=== PATIENT | female | born 1935 | race Caucasian/White ===

== ENCOUNTER 2017-06-03 10:57 | Inpatient (IN) | payer OTHER ==
[~2017-06-03] VITALS: Ht 149.9 cm; Wt 43.0 kg
[2017-06-03] VITALS (9 sets, daily range): BP systolic 98–135; BP diastolic 50–63
[~2017-06-03 10:57] MED LIST: CRESTOR10 MG; KEFLEX500 MG PO; METOPROLOL SUC100 MG
[2017-06-03 11:30] LABS: PLATELET COUNT 152 K/uL (156-360)
[2017-06-03 11:36] LABS: HEMATOCRIT 42.2 % (36.0-46.0); HEMOGLOBIN 13.4 G/DL (11.9-15.5); MCH 29.5 PG (29.0-34.0); MCHC 31.8 G/DL (30.0-36.0); RBC DIS.WIDTH-CV 12.8 % (11.8-14.6); RBC DIS.WIDTH-SD 43.5 % (39-53); RED BLOOD COUNT 4.54 M/uL (3.80-5.20)
[2017-06-03 11:46] LABS: CHLORIDE 101 mEq/L (99-109)
[2017-06-03 11:47] LABS: POTASSIUM 3.7 mEq/L (3.7-5.4); SODIUM 140 mEq/L (136-147)
[2017-06-03 11:48] LABS: GLUCOSE 123 mg/dL (70-99)
[2017-06-03 11:52] LABS: CREATININE 3.1 mg/dL (0.6-1.3); GFR ESTIMATE (CALCULATED) 15 mL/min/
[2017-06-03 11:53] LABS: UREA NITROGEN (BUN) 26 mg/dL (9-23)
[2017-06-03 12:56] LABS: APPEARANCE CLOUDY ((CLEAR)); BILIRUBIN NEGATIVE; BLOOD MODERATE; COLOR AMBER ((YELLOW)); GLUCOSE (STRIP) NEGATIVE; KETONES NEGATIVE; LEUKOCYTES MODERATE; NITRITE NEGATIVE; PROTEIN (STRIP) 100; SPECIFIC GRAVITY 1.015 (1.000-1.030)
[2017-06-03 13:10] LABS: BACTERIA 3+ /HPF; EPITHELIAL CELLS RARE /HPF; MUCUS NONE SEEN /LPF; UCUL ADDED? YES; WHITE BLOOD CELLS 15-20 /HPF (0-5)
[2017-06-03] MEDS ORDERED: ERGOCALCIF50000 UNIT PO (15:11)
[2017-06-03] MEDS ORDERED: CYANOCOBAL1000 MCG/2 IM (15:12)
[2017-06-03 15:43] LABS: TROP-I INTERPRETATION NEGATIVE; TROPONIN-I 0.02 ng/mL (0.0-0.30)
[2017-06-04] VITALS (26 sets, daily range): BP systolic 0–128; BP diastolic 0–83
[2017-06-04 05:35] LABS: INTER. NORMALIZED RATIO 1.4
[2017-06-04 05:37] LABS: HEMATOCRIT 31.2 % (36.0-46.0); MCH 28.5 PG (29.0-34.0); MCHC 30.8 G/DL (30.0-36.0); MCV 92.6 FL (83-99); RBC DIS.WIDTH-CV 13.1 % (11.8-14.6); RBC DIS.WIDTH-SD 44.5 % (39-53); WHITE BLOOD COUNT 17.7 K/uL (4.1-10.2)
[2017-06-04 05:38] LABS: HEMOGLOBIN 9.6 G/DL (11.9-15.5); PTT 45.9 SEC (25-37); RED BLOOD COUNT 3.37 M/uL (3.80-5.20)
[2017-06-04 06:16] LABS: ALBUMIN 2.4 G/DL (3.2-4.8); ALKALINE PHOSPHATASE 40 IU/L (3-129); ALT (GPT) 6 IU/L (3-49); AST (GOT) 14 IU/L (2-34); CHLORIDE 117 MEQ/L (99-109); POTASSIUM 4.3 MEQ/L (3.7-5.4); SODIUM 145 MEQ/L (136-147); TOTAL BILIRUBIN 0.6 MG/DL (0.0-1.0); TOTAL PROTEIN 4.1 G/DL (6.4-8.3); UREA NITROGEN (BUN) 26 mg/dL (9-23)
[2017-06-04 06:18] LABS: GFR ESTIMATE (CALCULATED) 25 mL/min/; GLUCOSE 72 mg/dL (70-99)
[2017-06-04 06:25] LABS: PLAT.SUFFICIENCY DECREASED
[2017-06-04 06:27] LABS: PLATELET COUNT 101 K/uL (156-360)
[2017-06-05] VITALS (14 sets, daily range): BP systolic 92–154; BP diastolic 50–107
[2017-06-05 08:31] LABS: HEMATOCRIT 32.4 % (36.0-46.0); MCH 28.7 PG (29.0-34.0); MCHC 30.9 G/DL (30.0-36.0); MCV 92.8 FL (83-99); PLATELET COUNT 90 K/uL (156-360); RBC DIS.WIDTH-CV 13.2 % (11.8-14.6); RED BLOOD COUNT 3.49 M/uL (3.80-5.20); WHITE BLOOD COUNT 9.7 K/uL (4.1-10.2)
[2017-06-05 08:58] LABS: CHLORIDE 117 MEQ/L (99-109); GFR ESTIMATE (CALCULATED) 42 mL/min/; GLUCOSE 70 mg/dL (70-99); POTASSIUM 3.9 MEQ/L (3.7-5.4); SODIUM 142 MEQ/L (136-147); UREA NITROGEN (BUN) 25 mg/dL (9-23)
[2017-06-05 09:02] LABS: CREATININE 1.3 MG/DL (0.6-1.3)
[2017-06-05 09:15] LABS: ATYPICAL LYMPHOCYTE 0.9 %; BAND NEUTROPHILS 8.7 % (0-8.0); BASOPHILS 0.9 %; EOSINOPHIL ABS CT 0; LYMPHOCYTES 3.5 % (15.0-45.0); MONOCYTES 1.7 % (0-9.0); SEG.NEUTROPHILS 84.3 % (46.0-76.0); SMUDGE CELLS 0.9
[2017-06-06 00:58] VITALS: BP 146/67
[2017-06-06 03:12] VITALS: BP 186/85
[2017-06-06 07:38] VITALS: BP 146/77
[2017-06-06 12:06] LABS: CREATININE 1.1 MG/DL (0.6-1.3)
[2017-06-06 12:30] VITALS: BP 139/62
[2017-06-06 15:54] VITALS: BP 144/64
[2017-06-06 20:01] VITALS: BP 164/69
[2017-06-07 00:23] VITALS: BP 131/64
[2017-06-07 04:22] VITALS: BP 117/57
[2017-06-07 06:13] LABS: CREATININE 0.9 mg/dL (0.6-1.3); GFR ESTIMATE (CALCULATED) > 59 mL/min/
[2017-06-07 06:14] LABS: UREA NITROGEN (BUN) 13 mg/dL (9-23)
[2017-06-07 07:20] VITALS: BP 154/70
[2017-06-07 11:09] VITALS: BP 126/57
[2017-06-07 15:26] VITALS: BP 141/83
[2017-06-07 23:35] VITALS: BP 137/72
[2017-06-08 06:16] VITALS: BP 140/65
[2017-06-09] MEDS ORDERED: CEFTIN250 MG PO (16:23)
== END 2017-06-08 14:02 | disposition home health service (06) | DRG 871 ==
LOC: EME 10:57 → EDOF 15:52 → 4WEST 15:52 → ENRESERV 15:57 → 4WEST 17:17 → ENRESERV 06-05 15:02 → 2EAST 06-05 20:21
PROVIDERS: Emergency Medicine; Internal Medicine; Internal Medicine Critical Care Medicine; Radiology Diagnostic Radiology
PROC: 02HV33Z Insertion of Infusion Device into Superior Vena Cava, Percutaneous Approach (ICD-10-PCS; principal; 2017-06-03)
PROC: 0T9030Z Drainage of Right Kidney with Drainage Device, Percutaneous Approach (ICD-10-PCS; 2017-06-04)
DX: A41.51 Sepsis due to Escherichia coli [E. coli] (principal); R65.21 Severe sepsis with septic shock; J90 Pleural effusion, not elsewhere classified; N17.9 Acute kidney failure, unspecified; E87.2 Acidosis; K52.9 Noninfective gastroenteritis and colitis, unspecified; N18.9 Chronic kidney disease, unspecified; S60.511A Abrasion of right hand, initial encounter; B96.20 Unspecified Escherichia coli [E. coli] as the cause of diseases classified elsewhere; N13.2 Hydronephrosis with renal and ureteral calculous obstruction; I12.9 Hypertensive chronic kidney disease with stage 1 through stage 4 chronic kidney disease, or unspecified chronic kidney disease; W19.XXXA Unspecified fall, initial encounter; G30.9 Alzheimer's disease, unspecified; E78.5 Hyperlipidemia, unspecified; Z66 Do not resuscitate; D69.6 Thrombocytopenia, unspecified; F02.80 Dementia in other diseases classified elsewhere, unspecified severity, without behavioral disturbance, psychotic disturbance, mood disturbance, and anxiety; N39.0 Urinary tract infection, site not specified; Y92.9 Unspecified place or not applicable; Z87.440 Personal history of urinary (tract) infections; Z68.1 Body mass index [BMI] 19.9 or less, adult
CPT/HCPCS: 50433; 71010; 71020; 74000; 74176; 76775; 80048; 80053; 81003; 82565; 82945; 83605; 83615 91; 83986 90; 84157; 84484; 84520; 85025; 85027; 85610; 85730; 87040; 87070; 87077; 87086; 87186; 87205; 87493; 87641; 89051; 93005; 99281; 99285; C1751; C1769; J0610; J0692; J1644; J3010; J3370; J7030; J7050; J7070

== ENCOUNTER 2017-06-09 11:40 | Inpatient (IN) | payer OTHER ==
[~2017-06-09] VITALS: Ht 149.9 cm; Wt 41.8 kg
[~2017-06-09 11:40] MED LIST changes: +CYANOCOBAL1000 MCG/2 IM; +ERGOCALCIF50000 UNIT PO
[2017-06-09 12:58] LABS: ALBUMIN 2.5 g/dL (3.2-4.8); CHLORIDE 105 mEq/L (99-109); POTASSIUM 3.4 mEq/L (3.7-5.4); SODIUM 141 mEq/L (136-147)
[2017-06-09 13:01] LABS: BASOPHIL (%) 0.4 % (0-1); EOSINOPHIL (%) 2.8 % (0-5); EOSINOPHIL COUNT 0.1 K/uL (0-0.3); GLUCOSE 86 mg/dL (70-99); HEMATOCRIT 32.8 % (36.0-46.0); HEMOGLOBIN 10.6 G/DL (11.9-15.5); IMMATURE GRANULOCYTE (%) 3.9 % (0.0-0.7); LYMPHOCYTE (%) 12.2 % (15-42); LYMPHOCYTE COUNT 0.6 K/uL (1.0-2.8); MCHC 32.3 G/DL (30.0-36.0); MCV 89.9 FL (83-99); MONOCYTE (%) 10.4 % (3-12); MONOCYTE COUNT 0.5 K/uL (0-0.8); NEUTROPHIL (%) 70.3 % (45-76); NEUTROPHIL COUNT 3.6 K/uL (1.8-6.4); RBC DIS.WIDTH-SD 42.7 % (39-53); RED BLOOD COUNT 3.65 M/uL (3.80-5.20); TOTAL PROTEIN 5.3 g/dL (6.4-8.3); WHITE BLOOD COUNT 5.1 K/uL (4.1-10.2)
[2017-06-09 13:03] LABS: PLATELET COUNT 161 K/uL (156-360); TOTAL BILIRUBIN 0.6 mg/dL (0.0-1.0)
[2017-06-09 13:04] LABS: ALKALINE PHOSPHATASE 40 IU/L (3-129); CREATININE 0.7 mg/dL (0.6-1.3); GFR ESTIMATE (CALCULATED) > 59 mL/min/
[2017-06-09 13:05] LABS: UREA NITROGEN (BUN) 7 mg/dL (9-23)
[2017-06-09 13:06] LABS: AST (GOT) 15 IU/L (2-34)
[2017-06-09 13:07] LABS: ALT (GPT) 6 IU/L (3-49)
[2017-06-09 13:37] LABS: APPEARANCE CLOUDY ((CLEAR)); BILIRUBIN NEGATIVE; BLOOD SMALL; COLOR YELLOW ((YELLOW)); GLUCOSE (STRIP) NEGATIVE; KETONES NEGATIVE; LEUKOCYTES LARGE; NITRITE NEGATIVE; PROTEIN (STRIP) 30; UROBILINOGEN 0.2 MG/DL (0.2-1.0)
[2017-06-09 14:39] LABS: RED BLOOD CELLS RARE /HPF (0-5)
[2017-06-09 14:40] LABS: BACTERIA 2+ /HPF; EPITHELIAL CELLS 2+ /HPF; MUCUS NONE SEEN /LPF; UCUL ADDED? YES; WHITE BLOOD CELLS 20-30 /HPF (0-5)
[2017-06-09] MEDS ORDERED: CEFTIN250 MG PO (16:23)
[2017-06-09 21:39] VITALS: BP 151/68
[2017-06-09 23:25] VITALS: BP 155/67
[2017-06-10 06:07] LABS: BASOPHIL (%) 0.5 % (0-1); EOSINOPHIL (%) 2.6 % (0-5); EOSINOPHIL COUNT 0.2 K/uL (0-0.3); HEMATOCRIT 30.1 % (36.0-46.0); HEMOGLOBIN 9.6 G/DL (11.9-15.5); LYMPHOCYTE (%) 11.3 % (15-42); LYMPHOCYTE COUNT 0.7 K/uL (1.0-2.8); MCH 28.7 PG (29.0-34.0); MCHC 31.9 G/DL (30.0-36.0); MCV 89.9 FL (83-99); MONOCYTE (%) 9.4 % (3-12); MONOCYTE COUNT 0.6 K/uL (0-0.8); NEUTROPHIL (%) 73.2 % (45-76); NEUTROPHIL COUNT 4.4 K/uL (1.8-6.4); PLATELET COUNT 154 K/uL (156-360); RBC DIS.WIDTH-CV 12.9 % (11.8-14.6); RBC DIS.WIDTH-SD 42.4 % (39-53); RED BLOOD COUNT 3.35 M/uL (3.80-5.20)
[2017-06-10 06:56] LABS: CHLORIDE 107 MEQ/L (99-109); CREATININE 0.5 MG/DL (0.6-1.3); GFR ESTIMATE (CALCULATED) > 59 mL/min/; GLUCOSE 88 mg/dL (70-99); POTASSIUM 3.3 MEQ/L (3.7-5.4); SODIUM 143 MEQ/L (136-147); UREA NITROGEN (BUN) 6 mg/dL (9-23)
[2017-06-10 08:00] VITALS: BP 137/65
[2017-06-10 12:00] VITALS: BP 149/67
[2017-06-10 16:00] VITALS: BP 149/67
[2017-06-11 00:11] VITALS: BP 134/62
[2017-06-11 07:40] VITALS: BP 165/72
[2017-06-11 16:34] VITALS: BP 145/65
[2017-06-11 19:12] VITALS: BP 148/66
[2017-06-12] VITALS (8 sets, daily range): BP systolic 113–149; BP diastolic 56–75
[2017-06-12 05:59] LABS: BASOPHIL (%) 0.5 % (0-1); EOSINOPHIL (%) 3.4 % (0-5); EOSINOPHIL COUNT 0.2 K/uL (0-0.3); HEMATOCRIT 29.8 % (36.0-46.0); HEMOGLOBIN 9.1 G/DL (11.9-15.5); IMMATURE GRANULOCYTE (%) 1.2 % (0.0-0.7); LYMPHOCYTE (%) 11.1 % (15-42); LYMPHOCYTE COUNT 0.7 K/uL (1.0-2.8); MCHC 30.5 G/DL (30.0-36.0); MCV 91.7 FL (83-99); MONOCYTE (%) 7.6 % (3-12); MONOCYTE COUNT 0.5 K/uL (0-0.8); NEUTROPHIL (%) 76.2 % (45-76); NEUTROPHIL COUNT 4.5 K/uL (1.8-6.4); PLATELET COUNT 177 K/uL (156-360); RBC DIS.WIDTH-CV 13.2 % (11.8-14.6); RBC DIS.WIDTH-SD 43.6 % (39-53); RED BLOOD COUNT 3.25 M/uL (3.80-5.20); WHITE BLOOD COUNT 5.9 K/uL (4.1-10.2)
[2017-06-12 06:40] LABS: CHLORIDE 108 MEQ/L (99-109); CREATININE 0.6 MG/DL (0.6-1.3); GFR ESTIMATE (CALCULATED) > 59 mL/min/; GLUCOSE 112 mg/dL (70-99); POTASSIUM 3.6 MEQ/L (3.7-5.4); SODIUM 143 MEQ/L (136-147); UREA NITROGEN (BUN) 5 mg/dL (9-23)
[2017-06-13 04:00] VITALS: BP 134/71
[2017-06-13 07:31] VITALS: BP 138/66
[2017-06-13 11:39] VITALS: BP 139/66
[2017-06-13 15:31] VITALS: BP 138/68
[2017-06-14 00:18] VITALS: BP 145/66
[2017-06-14 06:21] LABS: BASOPHIL (%) 0.9 % (0-1); BASOPHIL COUNT 0.1 K/uL (0-0.1); EOSINOPHIL COUNT 0.2 K/uL (0-0.3); HEMATOCRIT 32.1 % (36.0-46.0); HEMOGLOBIN 10.1 G/DL (11.9-15.5); IMMATURE GRANULOCYTE (%) 0.5 % (0.0-0.7); LYMPHOCYTE (%) 9.8 % (15-42); LYMPHOCYTE COUNT 0.6 K/uL (1.0-2.8); MCH 28.9 PG (29.0-34.0); MCHC 31.5 G/DL (30.0-36.0); MCV 91.7 FL (83-99); MONOCYTE (%) 5.4 % (3-12); MONOCYTE COUNT 0.3 K/uL (0-0.8); NEUTROPHIL (%) 79.4 % (45-76); NEUTROPHIL COUNT 4.6 K/uL (1.8-6.4); PLATELET COUNT 229 K/uL (156-360); RBC DIS.WIDTH-CV 13.3 % (11.8-14.6); RBC DIS.WIDTH-SD 44.9 % (39-53); WHITE BLOOD COUNT 5.7 K/uL (4.1-10.2)
[2017-06-14 06:57] LABS: CHLORIDE 103 MEQ/L (99-109); CREATININE 0.7 MG/DL (0.6-1.3); GFR ESTIMATE (CALCULATED) > 59 mL/min/; POTASSIUM 4.2 MEQ/L (3.7-5.4); SODIUM 142 MEQ/L (136-147); UREA NITROGEN (BUN) 6 mg/dL (9-23)
[2017-06-14 06:59] LABS: GLUCOSE 80 mg/dL (70-99)
[2017-06-14 07:15] VITALS: BP 159/74
[2017-06-14 15:05] VITALS: BP 134/93
[2017-06-14 23:37] VITALS: BP 143/65
[2017-06-15 07:10] VITALS: BP 160/74
[2017-06-15 15:10] VITALS: BP 180/76
[2017-06-16 00:42] VITALS: BP 170/76
[2017-06-16 07:30] VITALS: BP 160/71
[2017-06-16 15:00] VITALS: BP 150/68
[2017-06-17 00:06] VITALS: BP 131/63
[2017-06-17 07:15] LABS: HEMATOCRIT 34.3 % (36.0-46.0); HEMOGLOBIN 10.7 G/DL (11.9-15.5); MCH 28.2 PG (29.0-34.0); MCHC 31.2 G/DL (30.0-36.0); MCV 90.3 FL (83-99); PLATELET COUNT 226 K/uL (156-360); RBC DIS.WIDTH-CV 13.3 % (11.8-14.6); RBC DIS.WIDTH-SD 43.8 % (39-53); WHITE BLOOD COUNT 3.7 K/uL (4.1-10.2)
[2017-06-17 07:18] LABS: CHLORIDE 99 MEQ/L (99-109); CREATININE 0.7 MG/DL (0.6-1.3); GFR ESTIMATE (CALCULATED) > 59 mL/min/; GLUCOSE 63 mg/dL (70-99); POTASSIUM 4.5 MEQ/L (3.7-5.4); SODIUM 139 MEQ/L (136-147); UREA NITROGEN (BUN) 8 mg/dL (9-23)
[2017-06-17 07:45] VITALS: BP 141/66
[2017-06-17 16:23] VITALS: BP 136/65
[2017-06-17 23:45] VITALS: BP 141/68
[2017-06-18 08:31] VITALS: BP 135/62
[2017-06-18] MEDS ORDERED: LISINOPRIL2.5 MG PO (13:00)
[2017-06-18] MEDS ORDERED: K-DUR20 MEQ PO (13:02)
[2017-06-18] MEDS ORDERED: COLACE100 MG PO (13:03)
[2017-06-18] MEDS ORDERED: ZOFRAN4 MG PO (13:04)
[2017-06-18] MEDS ORDERED: CEFTIN250 MG PO (13:12)
[2017-06-18] MEDS ORDERED: ACIDOPHILUS LA1 EACH PO (13:29)
== END 2017-06-18 16:26 | DRG 194 ==
LOC: EME 11:40 → 5EAST 15:20 → EDOF 15:20 → ENRESERV 15:40 → 5EAST 20:23 → ENPENDDIS 06-18 → EDPENDDISTM 06-18 → 5EAST 06-18 16:26 → EDPENDDISTM 06-18 16:30
PROVIDERS: Emergency Medicine; Internal Medicine
DX: J18.9 Pneumonia, unspecified organism (principal); J90 Pleural effusion, not elsewhere classified; E87.6 Hypokalemia; D64.9 Anemia, unspecified; Z68.1 Body mass index [BMI] 19.9 or less, adult; E78.5 Hyperlipidemia, unspecified; F03.90 Unspecified dementia, unspecified severity, without behavioral disturbance, psychotic disturbance, mood disturbance, and anxiety; I10 Essential (primary) hypertension; E55.9 Vitamin D deficiency, unspecified; E53.8 Deficiency of other specified B group vitamins; N20.0 Calculus of kidney; M19.90 Unspecified osteoarthritis, unspecified site; N39.0 Urinary tract infection, site not specified; R13.10 Dysphagia, unspecified; Y95 Nosocomial condition; Z86.19 Personal history of other infectious and parasitic diseases; Z87.442 Personal history of urinary calculi
CPT/HCPCS: 71020; 71046; 71048; 74176; 80048; 80053; 81003; 82948; 83605; 85025; 85027; 87040; 87086; 87106; 87205; 87493; 90686; 93005; 99281; 99285; J0692; J3370; J7050